=== PATIENT | male | born 1960 | race Caucasian/White ===

== ENCOUNTER 2022-05-24 22:14 | Emergency (ER) | payer OTHER ==
[2022-05-24 23:50] LABS: BASOPHIL 0.6 % (0-2); EOSINOPHIL 0.6 % (0-5); HCT 33.2 % (42.0-52.0); HGB 11.9 g/dl (13.2-18.0); LYMPHOCYTE 10.4 % (15-48); MCH 37.8 pg (25.0-31.0); MCHC 35.8 g/dL (32.0-36.0); MCV 105.4 fL (78.0-100.0); MPV 9.3 fL (6.0-9.5); NEUTROPHIL 78.9 % (41-80); NRBC 0; PLT 152 K/uL (150-400); RBC 3.15 M/uL (4.70-6.00); RDW 11.3 % (11.5-14.0); WBC 8.5 K/uL (4.0-10.5)
[2022-05-25 00:03] LABS: LYMPHOCYTE(M) 10 % (15-48); MONOCYTE(M) 10 % (0-12); NEUTROPHILS(M) 80 % (41-80); TOTAL CELL COUNT 100
[2022-05-25 00:08] LABS: INR 1.04 (0.9-1.2); PROTHROMBIN TIME 13.3 SECONDS (11.9-13.9); PTT 29.2 SECONDS (24.9-34.6)
[2022-05-25 00:12] LABS: PLATELET ESTIMATE NORMAL; PLATELET MORPHOLOGY NORMAL
[2022-05-25 04:09] LABS: ALBUMIN 3.4 g/dL (3.4-5.0); BILIRUBIN - TOTAL 0.5 mg/dL (0.2-1.0); BUN/CREAT RATIO (CALC) 18.6 RATIO; CREATININE 0.43 mg/dL (0.67-1.17); GLOBULIN (CALCULATION) 4.4 g/dL; POTASSIUM 3.7 mmol/L (3.5-5.1); TOTAL PROTEIN 7.8 g/dL (6.4-8.2)
== END 2022-05-25 05:26 | disposition home or self-care (01) ==
LOC: FER 22:14
PROVIDERS: Emergency Medicine
DX: S01.01XA Laceration without foreign body of scalp, initial encounter (principal); S06.6X0A Traumatic subarachnoid hemorrhage without loss of consciousness, initial encounter; E87.1 Hypo-osmolality and hyponatremia; F17.200 Nicotine dependence, unspecified, uncomplicated; Z23 Encounter for immunization; W01.0XXA Fall on same level from slipping, tripping and stumbling without subsequent striking against object, initial encounter; Y92.008 Other place in unspecified non-institutional (private) residence as the place of occurrence of the external cause
CPT/HCPCS: 36415; 70450; 72125; 80053; 85610; 85730; 90471; 90715